=== PATIENT | male | born 1985 | race Caucasian/White ===

== ENCOUNTER 2020-08-10 16:10 | Observation (INO) | payer OTHER, SELFPAY ==
[2020-08-10] MEDS ORDERED: Ondansetron PF 4 MG/2 ML Vial ONE ×2 (16:54→18:06)
[2020-08-10] MEDS ORDERED: Morphine 4 MG/ML VIAL ONE (16:54)
[2020-08-10] MEDS ORDERED: Ketamine 50 MG/ML (10ML VIAL) ONE (17:25)
[2020-08-10] MEDS ORDERED: Fentanyl 100 MCG/2 ML VIAL ONE ×2 (17:45→19:51)
[2020-08-10] MEDS ORDERED: Ondansetron HCl/PF 4 MG/2 ML Vial IVP PRN (17:50)
[2020-08-10] MEDS ORDERED: Neomycin-Polymyxin 1 ML AMP ONE (17:51)
[2020-08-10] MEDS ORDERED: Ketorolac Tromethamine 30 MG/ML VIAL ONE (18:06)
[2020-08-10] MEDS ORDERED: Succinylcholine 200 MG/10 ml SYRINGE FS ONE (18:06)
[2020-08-10] MEDS ORDERED: Rocuronium Bromide 10 MG/ML (10ML VIAL) ONE (18:06)
[2020-08-10] MEDS ORDERED: Lidocaine 1% PF 5 ML VIAL ONE (18:06)
[2020-08-10] MEDS ORDERED: Dexamethasone 20 MG/5 ML VIAL ONE (18:06)
[2020-08-10] MEDS ORDERED: PROPOFOL 200 MG/20 ML VIAL ONE (18:06)
[2020-08-10 18:13] LABS: SARS-CoV-2 NAA Rapid Test Not Detected (NotDetected)
[2020-08-10] MEDS ORDERED: HYDROcodone/Acetaminophen 10/325 mg Tablet PO PRN (20:46)
[2020-08-10] MEDS ORDERED: Ondansetron PF 4 MG/2 ML Vial IVP PRN (20:47)
[2020-08-10] MEDS ORDERED: Morphine 4 MG/ML VIAL SLOW IVP PRN (20:47)
[2020-08-10] MEDS: HYDROcodone/Acetaminophen 10/325 mg Tablet PO PRN (21:34)
[2020-08-10] MEDS: Lactated Ringer's 1,000 ML IV SCH (21:35)
[2020-08-10 21:40] VITALS: BMI 25.9
[2020-08-11] MEDS ORDERED: Bupivacaine PF 0.5% 30 ML VIAL ONE (01:20)
[2020-08-11] MEDS: CEFAZOLIN 2 GM in Premix Bag 1 BAG IVPB SCH ×2 (03:40→09:05)
[2020-08-11] MEDS: Ketorolac Tromethamine 30 MG/ML VIAL IVP SCH ×2 (03:43→08:18)
[2020-08-11] MEDS: Lactated Ringer's 1,000 ML IV SCH ×2 (04:00→09:08)
[2020-08-11] MEDS: HYDROcodone/Acetaminophen 10/325 mg Tablet PO PRN ×2 (06:54→11:01)
[2020-08-11 12:15] VITALS: BP 113/70; TEMP 98
[2020-08-11] MEDS ORDERED: Acetaminophen 500 MG TAB PO PRN (13:37)
[2020-08-11] MEDS ORDERED: traMADol HCl 50 MG TAB PO PRN ×2 (13:37)
[2020-08-11] MEDS ORDERED: Ibuprofen 800 MG TAB PO PRN (13:37)
[2020-08-11] MEDS ORDERED: Ibuprofen 600 MG TAB PO PRN (13:57)
[2020-08-11] MEDS ORDERED: Acetaminophen 325 MG TAB PO PRN (14:00)
== END 2020-08-11 15:26 | disposition home or self-care (01) ==
LOC: ERS 16:10 → SDC/OP 17:41 → SURG B 20:36
PROVIDERS: ADMIT Orthopaedic Surgery; ATTEND Orthopaedic Surgery
PROC: 0PST04Z Reposition Right Finger Phalanx with Internal Fixation Device, Open Approach (ICD-10-PCS; principal; 2020-08-10)
PROC: 0HQFXZZ Repair Right Hand Skin, External Approach (ICD-10-PCS; 2020-08-10)
PROC: 0HRFX73 Replacement of Right Hand Skin with Autologous Tissue Substitute, Full Thickness, External Approach (ICD-10-PCS; 2020-08-10)
DX: S68.112A Complete traumatic metacarpophalangeal amputation of right middle finger, initial encounter (principal); S62.614A Displaced fracture of proximal phalanx of right ring finger, initial encounter for closed fracture; S61.411A Laceration without foreign body of right hand, initial encounter; F17.210 Nicotine dependence, cigarettes, uncomplicated; Z20.822 Contact with and (suspected) exposure to COVID-19; W34.09XA Accidental discharge from other specified firearms, initial encounter
CPT/HCPCS: 76000; 94760; 96365; 96374; 96375; 96376; G0378; J0690; J1100; J1885; J2270; J2405; J2704; J3010; S0020; U0002

== ENCOUNTER 2020-09-18 15:09 | Emergency (ER) | payer OTHER, SELFPAY ==
[2020-09-18] MEDS ORDERED: Ketorolac Tromethamine 30 MG/ML VIAL ONE (16:38)
== END 2020-09-18 17:09 | disposition home or self-care (01) ==
LOC: ERS 15:09
DX: S89.92XA Unspecified injury of left lower leg, initial encounter (principal); F17.210 Nicotine dependence, cigarettes, uncomplicated; W17.89XA Other fall from one level to another, initial encounter
CPT/HCPCS: 96372; J1885

== ENCOUNTER 2021-06-17 21:12 | Emergency (ER) | payer OTHER | END 2021-06-17 22:12 | disposition home or self-care (01) | LOC: ERS 21:12 | DX: S20.212A Contusion of left front wall of thorax, initial encounter (principal); W20.8XXA Other cause of strike by thrown, projected or falling object, initial encounter | CPT/HCPCS: 71045 ==

== ENCOUNTER 2023-11-23 23:12 | Emergency (ER) | payer OTHER ==
[~2023-11-23 23:12] MED LIST: Iopamidol-370 76% 500 ML MDV (1 ML CHARGE) ONE
[2023-11-23 23:43] LABS: #Basophils 0.05 10x3/uL (0.0-0.2); %Basophils 0.4 % (0.0-1.0); %Eosinophils 0.8 % (0.0-10.0); %Neutrophils 75.6 % (42.0-75.0); Hemoglobin 15.9 g/dL (14.0-18.0); Mean Corpuscular HGB CONC 34.6 g/dL (32.0-36.0); Mean Corpuscular Hemoglobin 31.4 pg (27.0-31.0); Mean Corpuscular Volume 90.7 fL (78.0-98.0); Mean Platelet Volume 9.5 fL (7.4-10.4); Platelet Count 273 10x3/uL (130-400); RBC Distribution Width 12.7 % (11.5-14.5); Red Blood Cell (RBC) Count 5.07 mill/uL (4.70-6.10)
[2023-11-24 00:02] LABS: Alcohol 166.4 mg/dL (Less than 10)
[2023-11-24 00:05] LABS: ALT (SGPT) 38 U/L (8-55); AST (SGOT) 33 U/L (5-34); Albumin 3.7 g/dL (3.5-5.0); Alkaline Phosphatase 121 U/L (40-110); Anion Gap 20 mmol/L (10-20); BUN (Urea Nitrogen) 11 mg/dL (8.9-20.6); Bilirubin, Total 0.3 mg/dL (0.2-1.2); Calc. Creatinine Clearance 0 mL/min (70-130); Calcium 8.3 mg/dL (7.8-10.44); Carbon Dioxide 15 mmol/L (22-29); Chloride 113 mmol/L (98-107); Estimated GFR 55; Globulin 2.9 g/dL (2.4-3.5); Glucose 118 mg/dL (70-105); Lipase 61 U/L (8-78); Potassium 3.8 mmol/L (3.5-5.1); Protein, Total 6.6 g/dL (6.0-8.3); Sodium 144 mmol/L (136-145)
[2023-11-24 00:06] LABS: INR-International Normal Ratio 1.1; Prothrombin Time 14.2 sec (12.0-14.7)
[2023-11-24 00:09] LABS: PTT 22.6 sec (22.9-36.1)
[2023-11-24 02:10] LABS: Bacteria/HPF None Seen HPF (None Seen); Bilirubin Negative (Negative); Blood, Urine Negative (Negative); CAUTI Indications for Culture Pelvic or flank pain; Clarity Clear (Clear); Glucose, Urine (Dipstick) Normal (Negative); Ketone, Urine Trace mg/dL (Negative); Leukocyte Negative Leu/uL (Negative); Nitrite Negative (Negative); Protein, Urine (Dipstick) Negative (Neg-Trace); RBC/HPF 0-3 HPF (0-3); Specific Gravity, Urine 1.029 (1.002-1.036); Squamous Epithelial 0-3 HPF (0-3); Urobilinogen Normal mg/dL (Less than 2); WBC/HPF 0-3 HPF (0-3)
[2023-11-24] MEDS ORDERED: Ketorolac Tromethamine 30 MG (1 mL) VIAL ONE (02:24)
[2023-11-24 02:26] LABS: Urine Culture Reflex No No
[2023-11-24 02:54] LABS: Lactic Acid 2.3 mmol/L (0.5-2.2)
== END 2023-11-24 06:55 | disposition home or self-care (01) ==
LOC: ERS 23:12
DX: S06.0XAA Concussion with loss of consciousness status unknown, initial encounter (principal); S01.01XA Laceration without foreign body of scalp, initial encounter; R74.02 Elevation of levels of lactic acid dehydrogenase [LDH]; F10.129 Alcohol abuse with intoxication, unspecified; W22.8XXA Striking against or struck by other objects, initial encounter
CPT/HCPCS: 12013; 36416; 70450; 71260; 72125; 74177; 80053; 80307; 81001; 83605; 83690; 85025; 85610; 85730; 93005; 96374; G0390; J1885; Q9967